=== PATIENT | male | born 1995 | race Caucasian/White ===

== ENCOUNTER 2019-11-05 07:24 | Inpatient (IN) | payer BC, OTHER ==
[~2019-11-05] VITALS: Ht 195.6 cm; Wt 104.9 kg
[2019-11-05] MEDS ORDERED: ALUM & MAG HYDROX-SIMETH LIQ(MAALOX) 30 ML PO ONE (08:00)
[2019-11-05] MEDS ORDERED: LIDOCAINE VISCOUS 2% 15ML UD PO ONE (08:00)
[2019-11-05] MEDS ORDERED: DONNATAL 5ml ORAL Elix (BELLADONNA ALK-PHENOBARB) PO ONE (08:00)
[2019-11-05 08:28] LABS: Basophils # (auto) 0.1 10 ^3/uL (0-0.2); Basophils % (auto) 0.5 % (0.0-2.0); Eosinophils # (auto) 0.1 10 ^3/uL (0-0.8); Eosinophils % (auto) 1.4 % (0.0-7.0); Hematocrit 47.4 % (41.0-53.0); Hemoglobin 15.8 g/dL (13.5-17.5); Lymphocytes # (auto) 1.3 10 ^3/uL (0.4-5.4); Lymphocytes % (auto) 12.8 % (10.0-50.0); Mean Corpuscular Hgb Conc. 33.3 g/dL (32.0-36.0); Monocytes # (auto) 0.7 10 ^3/uL (0-1.3); Monocytes % (auto) 7.2 % (0.0-12.0); Neutrophils # (auto) 7.7 10 ^3/uL (1.6-8.6); Neutrophils % (auto) 78.1 % (37.0-80.0); Nucleated Red Blood Cells % 0.1 %; Platelet Count (auto) 225 10^3/uL (140-450); Red Blood Cells 5.86 10^6/uL (4.5-5.90); Red Cell Distribution Width 13.1 % (11.8-14.3); White Blood Cell 9.9 10^3/uL (4.4-10.8)
[2019-11-05 08:33] LABS: Urine Bacteria NONE SEEN /hpf (None Seen); Urine Blood Negative /uL (Negative); Urine Mucus FEW (None Seen); Urine Specific Gravity 1.025 (1.001-1.035); Urine WBC 1 /hpf (0 - 3)
[2019-11-05 08:47] LABS: BUN/Creatinine Ratio 15.5; Calcium 9.3 mg/dL (8.5-10.1); Potassium 3.9 mmol/L (3.5-5.1)
[2019-11-05 08:52] LABS: Bilirubin, Total 0.6 mg/dL (0.2-1.0); Total Protein 8.6 g/dL (6.4-8.2)
[2019-11-05] MEDS ORDERED: ASPirin 81 mg TAB PO ONE (09:15)
[2019-11-05] MEDS ORDERED: ENOXAPARIN SOD 120 MG/0.8 ML SYRINGE SC ONE (09:15)
[2019-11-05] MEDS ORDERED: LORazepam 0.5 MG TAB PO PRN ×2 (09:30)
[2019-11-05] MEDS ORDERED: MORPHINE SULFATE 4 MG/ML SYR/VIAL IV PRN (09:30)
[2019-11-05] MEDS ORDERED: ONDANSETRON HCL 4 MG/2 ML VIAL IV PRN ×2 (09:30)
[2019-11-05] MEDS ORDERED: NITROGLYCERIN 0.4 MG SL TAB SL PRN ×2 (09:30)
[2019-11-05] MEDS ORDERED: DOCUSATE SOD 100 MG CAP PO PRN (09:30)
[2019-11-05] MEDS ORDERED: MORPHINE SULF INJ 2 MG/ML SYRINGE 1ML IV PRN ×2 (09:30)
[2019-11-05] MEDS ORDERED: ACETAMINOPHEN 325 MG TAB PO PRN (09:30)
[2019-11-05] MEDS ORDERED: ALUM & MAG HYDROX-SIMETH LIQ(MAALOX) 30 ML PO PRN (09:30)
[2019-11-05] MEDS ORDERED: PANTOPRAZOLE 40 MG/10 ML VIAL INJ IV ONE (09:30)
[2019-11-05 09:35] LABS: INR 0.97 (0.9-1.15)
[2019-11-05] MEDS: ASPirin 81 mg TAB PO SCH (09:35)
[2019-11-05] MEDS ORDERED: MORPHINE SULFATE 4 MG/ML SYR/VIAL ONE (09:37)
[2019-11-05] MEDS ORDERED: MORPHINE SULFATE 4 MG/ML SYR/VIAL IV ONE (09:45)
[2019-11-05] MEDS: SOD CHL 0.45% 1,000 ML IV SCH (09:46)
[2019-11-05] MEDS ORDERED: PANTOPRAZOLE 40 MG/10 ML VIAL INJ IV SCH (10:00)
[2019-11-05] MEDS ORDERED: METOPROLOL TARTRATE 25 MG TAB PO SCH (10:00)
[2019-11-05] MEDS ORDERED: CLOPIDOGREL BISULFATE 75 MG TAB PO SCH (10:00)
[2019-11-05] MEDS ORDERED: PROMETHAZINE HCL 25 MG/ML 1ML IV ONE (10:00)
[2019-11-05 10:05] LABS: Alcohol, Urine < 3.0 mg/dL (0-10); Amphetamine Screen, Urine NEGATIVE (NEGATIVE); Barbiturate Scree,Urine NEGATIVE (NEGATIVE); Benzodiazephine Screen, Urine NEGATIVE (NEGATIVE); Cannabinoid Screen, Urine NEGATIVE (NEGATIVE); Cocaine Screen, Urine NEGATIVE (NEGATIVE); Opiate Scree,Urine NEGATIVE (NEGATIVE); Phencyclidine Screen, Urine NEGATIVE (NEGATIVE)
[2019-11-05] MEDS: DOCUSATE SOD 100 MG CAP PO SCH (10:12)
[2019-11-05 10:14] LABS: Cholesterol 225 mg/dL (< 200); HDL Cholesterol 44 mg/dL (40-59); LDL Cholesterol 156 mg/dL (< 100); Triglycerides 158 mg/dL (< 150)
[2019-11-05] MEDS ORDERED: IOHEXOL 350 MG/ML 100ML IJ ONE (10:48)
[2019-11-05] MEDS: SUCRALFATE 1 GM TAB PO SCH ×3 (11:11→21:45)
[2019-11-05] MEDS ORDERED: hydrALAZINE HCL 20 MG/ML VL IV PRN (11:45)
[2019-11-05] MEDS ORDERED: IBUPROFEN 800 MG TAB PO ONE (15:45)
--- NOTE | 2019-11-05 16:53 | NUR ---
Telemetry admit from ER: FABIAN PHILLIPS admitted to Telemetry unit after SBAR received. Patient oriented to SANAZ GUY, RN primary RN, unit, room, bed, and unit policies regarding patient care and visiting hours. Patient now on continuous telemetry monitoring, tele box # [id number] and telemetry reading on arrival to unit is SR. Patient placed on bedside oxygen 2 LPM, weighed by bedscale and encouraged to call if they need something. All questions and concerns addressed, patient verbalized understanding.
[2019-11-05 17:00] VITALS: BP 126/74
[2019-11-05 17:23] VITALS: BP 126/74
--- NOTE | 2019-11-05 18:46 | NUR ---
CLOSING NOTE: Patient asleep in bed. No S/S of distress or SOB at this time. Care endorsed.
--- NOTE | 2019-11-05 19:00 | NUR ---
OPENING NOTE - NOC SHIFT PATIENT IS IN BED RESTING EYES CLOSED. NO S/SX OF DISTRESS, SOB OR PAIN. BED IS LOCKED AT LOWEST POSITION, BED RAILS UP X2 AND HEAD OF BED IS UP >30 DEGREES. BEDSIDE TABLE IS WITHIN REACH, CALL LIGHT WITHIN REACH. WILL CONTINUE TO MONITOR Q1H AND PRN.
--- NOTE | 2019-11-05 19:45 | NUR ---
FAMILY CALL FAMILY UPDATED WITH PATIENT STATUS AFTER VERIFYING PASSWORD.
[2019-11-05] MEDS: PANTOPRAZOLE 40 MG TAB PO SCH (21:45)
[2019-11-05] MEDS: COLCHICINE 0.6 MG CAP PO SCH (21:45)
[2019-11-05] MEDS: IBUPROFEN 600 MG TAB PO SCH (21:45)
[2019-11-05] MEDS: ATORVASTATIN 20 MG TAB PO SCH (21:45)
[2019-11-05 22:04] VITALS: BP 138/63
--- NOTE | 2019-11-06 01:53 | NUR ---
ROUNDS PATIENT IS RESTING EYES CLOSED. NO S/SX OF DISTRESS, SOB OR PAIN.
[2019-11-06] MEDS: SOD CHL 0.45% 1,000 ML IV SCH ×2 (02:40→18:34)
[2019-11-06 05:00] VITALS: BP 105/57
[2019-11-06] MEDS: SUCRALFATE 1 GM TAB PO SCH (06:38)
[2019-11-06] MEDS: IBUPROFEN 600 MG TAB PO SCH (06:38)
--- NOTE | 2019-11-06 07:01 | NUR ---
CLOSING NOTE- NOC SHIFT PATIENT REPORTS EPIGASTRIC PAIN THAT "COMES AND GOES". PATIENT IS IN BED, BED IS LOCKED IN LOWEST POSITION. PATIENT ON PHONE CALL WITH FRIEND. WILL ENDORSE CARE TO DAY SHIFT RN.
[2019-11-06 09:59] VITALS: BP 113/69
[2019-11-06] MEDS ORDERED: HYDROmorphone HCL 2 MG/ML VL IV PRN (10:15)
[2019-11-06] MEDS: PANTOPRAZOLE 40 MG TAB PO SCH ×2 (10:17→22:53)
[2019-11-06] MEDS: ASPirin 81 mg TAB PO SCH (10:17)
[2019-11-06] MEDS: COLCHICINE 0.6 MG CAP PO SCH (10:17)
[2019-11-06] MEDS: DOCUSATE SOD 100 MG CAP PO SCH (10:18)
[2019-11-06] MEDS: SUCRALFATE 1 GM/10 ML ORAL SUSP PO SCH ×3 (13:00→22:52)
--- NOTE | 2019-11-06 13:43 | NUR ---
I called Dr. Tapia to discuss the plan of care for the patient-she will call me back after she sees patient.
[2019-11-06 14:31] VITALS: BP 116/73
--- NOTE | 2019-11-06 15:11 | NUR ---
1510 11/06/19 I faxed transfer order and Notice Regarding Post Stabilization to [facility]-documents scanned into [employer]. I faxed today's MD progress notes to [facility].
--- NOTE | 2019-11-06 15:34 | NUR ---
1530 11/06/19 I called [facility] and spoke with implementation analyst Davonte-I requested that authorization be given for patient's continued stay. Per Davonte they have no available beds to transfer patient to-inpatient authorization extended until 11/09/19 1000.
[2019-11-06 16:40] VITALS: BP 116/88
--- NOTE | 2019-11-06 16:43 | NUR ---
COVID SWAB GOTTEN AND TAKEN TO LAB. PT SIGNED CONSENT FORM FOR EGD AND VERBALIZED UNDERSTANDING OF PROCEDURE AND NPO STATUS.
--- NOTE | 2019-11-06 19:00 | NUR ---
OPENING NOTE- NOC SHIFT PATIENT IS ALERT AND ORIENTED X4. PATIENT IS IN BED, BED IS LOCKED AT LOWEST POSITION. BED RAILS UP X2 AND HEAD OF BED IS RAISED >30 DEGREES. PATIENT IS WATCHING TELEVISION. BEDSIDE TABLE WITHIN REACH, CALL LIGHT WITHIN REACH. DISCUSSED POC WITH PATIENT AND INSTRUCTED PATIENT TO CALL PRN; PATIENT VERBALIZED UNDERSTANDING. WILL CONTINUE TO MONITOR Q1H AND PRN.
[2019-11-06] MEDS: HYDROcodone-ACET 5/325MG TAB PO PRN ×2 (20:22→22:50)
[2019-11-06 22:00] VITALS: BP 131/99
[2019-11-06] MEDS: ATORVASTATIN 20 MG TAB PO SCH (22:52)
--- NOTE | 2019-11-07 02:00 | NUR ---
ROUNDS PATIENT IS IN BED EYES CLOSED. NO S/SX OF DISTRESS, SOB OR PAIN. PATIENT IS ON CONTINUOUS EKG TELE MONITOR. CALL LIGHT WITHIN REACH, CALL LIGHT WITHIN REACH.
[2019-11-07 05:00] VITALS: BP 126/70
[2019-11-07 06:13] LABS: Basophils # (auto) 0 10 ^3/uL (0-0.2); Basophils % (auto) 0.6 % (0.0-2.0); Eosinophils # (auto) 0.2 10 ^3/uL (0-0.8); Eosinophils % (auto) 2.8 % (0.0-7.0); Hematocrit 40.4 % (41.0-53.0); Hemoglobin 13.6 g/dL (13.5-17.5); Lymphocytes # (auto) 1.5 10 ^3/uL (0.4-5.4); Lymphocytes % (auto) 22.9 % (10.0-50.0); Mean Corpuscular Hemoglobin 27.2 pg (28.0-32.0); Mean Corpuscular Hgb Conc. 33.6 g/dL (32.0-36.0); Mean Corpuscular Volume 80.8 fL (80.0-100.0); Monocytes # (auto) 0.4 10 ^3/uL (0-1.3); Monocytes % (auto) 6.9 % (0.0-12.0); Neutrophils # (auto) 4.3 10 ^3/uL (1.6-8.6); Neutrophils % (auto) 66.8 % (37.0-80.0); Nucleated Red Blood Cells % 0.2 %; Platelet Count (auto) 206 10^3/uL (140-450); White Blood Cell 6.4 10^3/uL (4.4-10.8)
[2019-11-07 06:29] LABS: Calcium 8.5 mg/dL (8.5-10.1); Potassium 3.9 mmol/L (3.5-5.1)
[2019-11-07 06:33] LABS: BUN/Creatinine Ratio 8.1
[2019-11-07] MEDS: SUCRALFATE 1 GM/10 ML ORAL SUSP PO SCH ×2 (06:36→11:20)
--- NOTE | 2019-11-07 07:39 | NUR ---
CLOSING NOTE- NOC SHIFT PATIENT IS COMFORTABLE IN BED. PATIENT IS NPO FOR SCHEDULED PROCEDURE; PATIENT VERBALIZES UNDERSTANDING. NO S/SX OF DISTRESS OR SOB. WILL ENDORSE CARE TO DAY SHIFT NURSE GENET AVINA.
[2019-11-07 09:00] VITALS: BP_SYST 121; BP_SYST 139; BP_DIAS 83; BP_DIAS 94
[2019-11-07] MEDS: PANTOPRAZOLE 40 MG TAB PO SCH (09:05)
[2019-11-07] MEDS: DOCUSATE SOD 100 MG CAP PO SCH (09:05)
[2019-11-07] MEDS: MIDAZOLAM HCL 5 MG/ML-1ML VIAL ONE ×2 (09:24→09:28)
[2019-11-07] MEDS: fentaNYL CITRATE 100 MCG/2 ML VL ONE ×2 (09:24→09:28)
[2019-11-07 10:10] VITALS: BP 117/78
[2019-11-07] MEDS ORDERED: PANT40TA2 PO (10:26)
[2019-11-07] MEDS ORDERED: SUCR1TAB22 PO (10:26)
[2019-11-07] MEDS ORDERED: ATOR20TA PO (10:33)
[2019-11-07] MEDS: SOD CHL 0.45% 1,000 ML IV SCH (11:21)
[2019-11-07] MEDS ORDERED: LIDOCAINE VISCOUS 2% 15ML UD ONE (13:18)
[2019-11-07] MEDS ORDERED: diphenhdrAMINE HCL 50 MG/1 ML VL ONE (13:18)
--- NOTE | 2019-11-07 13:25 | NUR ---
Discharge instructions given as ordered. Encourage to follow up with Primary care provider and manager appointment as instructed. All questions and concerns addressed. Patient verbalized understanding. Medication reconciliation form completed and copy given to patient. IV removed with catheter intact, pressure dressing applied. Telemetry unit returned to ICU. Patient taken to vehicle via wheelchair with all personal belongings, accompanied by staff. No distress noted at time of departure.
== END 2019-11-07 13:25 | disposition home or self-care (01) | DRG 391 ==
LOC: ER 07:24 → TELE 07:25 → TELE-WESTW 16:53
PROVIDERS: ADMIT Hospitalist; ATTEND Internal Medicine
PROC: 0DJ08ZZ Inspection of Upper Intestinal Tract, Via Natural or Artificial Opening Endoscopic (ICD-10-PCS; principal; 2019-11-07 09:15)
DX: K29.00 Acute gastritis without bleeding (principal); I21.A1 Myocardial infarction type 2; E78.5 Hyperlipidemia, unspecified; K21.9 Gastro-esophageal reflux disease without esophagitis; K29.50 Unspecified chronic gastritis without bleeding; E88.81 Metabolic syndrome and other insulin resistance; R00.1 Bradycardia, unspecified; J45.909 Unspecified asthma, uncomplicated; Z82.49 Family history of ischemic heart disease and other diseases of the circulatory system; Z79.899 Other long term (current) drug therapy; Z03.818 Encounter for observation for suspected exposure to other biological agents ruled out
CPT/HCPCS: 36415; 71046; 71275; 76705; 80048; 80053; 80061; 80307; 81001; 83036; 83690; 83735; 83880; 84443; 84484; 85025; 85610; 85652; 85730; 86141; 93005; 93306; 96361; 96372; 96374; 96375; 99291; C9113; G0378; J2250